=== PATIENT | female | born 1995 | race Caucasian/White ===

== ENCOUNTER 2016-08-09 08:33 | Emergency (ER) | payer OTHER ==
[~2016-08-09] VITALS: Ht 154.9 cm; Wt 50.8 kg
[2016-08-09] MEDS ORDERED: ONDA4TAB10 PO (09:07)
[2016-08-09] MEDS ORDERED: HYDR-971 PO (09:07)
--- NOTE | 2016-08-09 09:25 | ED.ADGEN ---
Adult General HPI HPI Patient is a 20-year-old female presents emergency Department with a 2 day history of sore throat, subjective fevers, and chills. She also reports nausea but denies any vomiting. Her was diagnosed with strep pharyngitis with the last couple of weeks and has been treated. Review of Systems Review of Systems Constitutional: Denies fever or chills [] Eyes: Denies change in visual acuity, redness, or eye pain [] HENT: Denies nasal congestion or sore throat [] Respiratory: Denies cough or shortness of breath [] Cardiovascular: No additional information not addressed in HPI [] GI: Denies abdominal pain, nausea, vomiting, bloody stools or diarrhea [] : Denies dysuria or hematuria [] Musculoskeletal: Denies back pain or joint pain [] Integument: Denies rash or skin lesions [] Neurologic: Denies headache, focal weakness or sensory changes [] Endocrine: Denies polyuria or polydipsia [] Current Medications Current Medications Current Medications Medications (Trade) Dose Ordered Sig/[place] Start Time Stop Time Status Last Admin Dose Admin Penicillin G Benzathine (Bicillin L-A) 1,200,000 unit 1X ONCE 08/09/16 09:15 08/09/16 09:16 UNV Physical Exam Physical Exam Constitutional: Well developed, well nourished, no acute distress, non-toxic appearance. [] HENT: Normocephalic, atraumatic, bilateral external ears normal, oropharynx moist, no oral exudates, nose normal. Bilateral tonsils are erythematous and edematous with exudate [] Eyes: PERRLA, EOMI, conjunctiva normal, no discharge. [] Neck: Normal range of motion, no tenderness, supple, no stridor. [] Cardiovascular:Heart rate regular rhythm, no murmur [] Lungs & Thorax: Bilateral breath sounds clear to auscultation [] Abdomen: Bowel sounds normal, soft, no tenderness, no masses, no pulsatile masses. [] Skin: Warm, dry, no erythema, no rash. [] Extremities: No tenderness, no cyanosis, no clubbing, ROM intact, no edema. [] Neurologic: Alert and oriented X 3, normal motor function, normal sensory function, no focal deficits noted. [] Psychologic: Affect normal, judgement normal, mood normal. [] EKG EKG [] Radiology/Procedures Radiology/Procedures [] Course & Med Decision Making Course & Med Decision Making Pertinent Labs and Imaging studies reviewed. (See chart for details) Patient was treated empirically. She was given a dose of Bicillin here in emergency department. She was sent home with prescriptions for Zofran and [place]. She will follow with her physician as needed return emergency department sooner she develops new or worsening symptoms. [] Final Impression Final Impression Strep pharyngitis [] Problems: Dragon Disclaimer Dragon Disclaimer This electronic medical record was generated, in whole or in part, using a voice recognition dictation system. BARBARA MARX MD Aug 09, 2016 09:25
[2016-08-09] MEDS ORDERED: PENICILLIN G BENZATHINE LA 1,200,000 UNIT/2 ML DISP.SYRIN. IM ONE (09:45)
[2016-08-09 10:10] VITALS: BP 100/58
== END 2016-08-09 10:10 | disposition home or self-care (01) ==
LOC: ER 08:33
DX: J02.0 Streptococcal pharyngitis (principal); R50.9 Fever, unspecified; R11.0 Nausea
CPT/HCPCS: 96372; 99283; J0561

== ENCOUNTER 2018-04-12 18:48 | Emergency (ER) | payer OTHER ==
[~2018-04-12] VITALS: Ht 157.5 cm; Wt 58.4 kg
[~2018-04-12 18:48] MED LIST: HYDR-3165 PO; ONDA4TAB10 PO
--- NOTE | 2018-04-12 19:25 | PHYS DOC ---
Past History Past Medical History: No Pertinent History Past Surgical History: Other Alcohol Use: Occasionally Drug Use: None Adult General Chief Complaint Chief Complaint: URINARY FREQUENCY HPI HPI 22-year-old female presents with dysuria for 1 day. Patient has been on azithromycin for 5 days for a sinus infection. Today, she has had burning with urination. She denies increased frequency. She has had this burning sensation on urination today with every voiding. She denies chills. She does not have a significant history of frequent UTIs. She has not been sexually active for 11 months. She is not concerned about STD. Review of Systems Review of Systems Constitutional: Denies fever or chills [] Eyes: Denies change in visual acuity, redness, or eye pain [] HENT: Denies nasal congestion or sore throat [] Respiratory: Denies cough or shortness of breath [] Cardiovascular: No additional information not addressed in HPI [] GI: Denies abdominal pain, nausea, vomiting, bloody stools or diarrhea [] : Dysuria[] Musculoskeletal: Denies back pain or joint pain [] Integument: Denies rash or skin lesions [] Neurologic: Denies headache, focal weakness or sensory changes [] Endocrine: Denies polyuria or polydipsia [] All other systems were reviewed and found to be within normal limits, except as documented in this note. Allergies Allergies Allergies Coded Allergies Type Severity Reaction Last Updated Verified No Known Drug Allergies 08/09/16 No Physical Exam Physical Exam Constitutional: Well developed, well nourished, no acute distress, non-toxic appearance. [] HENT: Normocephalic, atraumatic, bilateral external ears normal, oropharynx moist, no oral exudates, nose normal. [] Eyes: PERRLA, EOMI, conjunctiva normal, no discharge. [] Neck: Normal range of motion, no tenderness, supple, no stridor. [] Cardiovascular:Heart rate regular rhythm, no murmur [] Lungs & Thorax: Bilateral breath sounds clear to auscultation [] Abdomen: Bowel sounds normal, soft, no tenderness, no masses, no pulsatile masses. [] Skin: Warm, dry, no erythema, no rash. [] Back: No tenderness, no CVA tenderness. [] Extremities: No tenderness, no cyanosis, no clubbing, ROM intact, no edema. [] Neurologic: Alert and oriented X 3, normal motor function, normal sensory function, no focal deficits noted. [] Psychologic: Affect normal, judgement normal, mood normal. : Shaved pubic hair, normal external exam, white discharge, no pain with exam [] Current Patient Data Vital Signs Vital Signs Date Time Temp Pulse Resp B/P (MAP) Pulse Ox O2 Delivery O2 Flow Rate FiO2 04/12/18 18:52 97.5 66 16 99 Room Air EKG EKG [] Radiology/Procedures Radiology/Procedures [] Course & Med Decision Making Course & Med Decision Making Pertinent Labs and Imaging studies reviewed. (See chart for details) The patient's urine is unremarkable. I offered a pelvic exam for further evaluation and the patient agreed. Her GC chlamydia is pending. Her wet prep was negative. I have advise that she try Azo for symptomatic treatment of her dysuria. She is stable for discharge at this time. Dragon Disclaimer Dragon Disclaimer This electronic medical record was generated, in whole or in part, using a voice recognition dictation system. Departure Departure: Referrals: JOANA WEST PA-C (PCP) DAVE KARIMI DO Apr 12, 2018 19:25
[2018-04-12 19:54] LABS: BILIRUBIN,URINE NEG (NEG); CLARITY,URINE HAZY; COLOR,URINE YELLOW; GLUCOSE,URINE NEG (NEG)
[2018-04-12 19:55] LABS: BACTERIA,URINE FEW /HPF (0-FEW); NITRITE,URINE NEG (NEG); SQUAMOUS EPITHELIAL CELL,UR MOD /LPF; UROBILINOGEN,URINE 0.2 mg/dL (0.2 mg/dL)
[2018-04-12 22:05] VITALS: BP 110/54
[2018-04-14 13:14] LABS: CHLAMYDIA PROBE Negative (Negative)
== END 2018-04-12 22:03 | disposition home or self-care (01) ==
LOC: ER 18:48
DX: R30.0 Dysuria (principal)
CPT/HCPCS: 36415; 81001; 81025; 87491; 87591; 99283; Q0111